=== PATIENT | female | born 1985 | race Hispanic/Latino ===

== ENCOUNTER 2019-02-04 08:19 | Outpatient (CLI) | payer BC | END 2019-02-04 08:20 | disposition home or self-care (01) | LOC: C.PAT 08:19 | DX: N84.0 Polyp of corpus uteri (principal) ==

== ENCOUNTER 2019-02-05 06:09 | Day surgery (SDC) | payer BC ==
[2019-02-04 08:28] VITALS: BMI 25.7
[2019-02-05] MEDS ORDERED: Midazolam 2 MG/2 ML VIAL ONE (07:53)
[2019-02-05] MEDS ORDERED: Propofol 10 mg/ml Inj (20 ML) ONE (07:53)
[2019-02-05] MEDS ORDERED: HYDROmorphone 0.5 mg/0.5 ml ISec IVP PRN (08:43)
[2019-02-05 11:49] LABS: BASO % 1.5 % (0.0-2.0); EOS # 0.1 K/uL (0.0-0.7); EOS % 2.9 % (0.0-4.0); HEMOGLOBIN 11.5 g/dL (11.0-16.0); LYMPH # 1.4 K/uL (1.0-4.3); MEAN CELL VOLUME 87.4 fL (81.0-99.0); MEAN CORPUSCULAR HEMOGLOBIN 28.7 pg (27.0-31.0); MEAN CORPUSCULAR HGB CONC 32.9 g/dL (33.0-37.0); MEAN PLATELET VOLUME 9.2 fL (7.2-11.7); MONO # 0.3 K/uL (0.0-0.8); MONO % 8.6 % (0.0-10.0); NEUT # 1.5 K/uL (1.8-7.0); NRBC % 0.1 % (0.0-2.0); RBC 4.02 Mil/uL (3.80-5.20); WHITE BLOOD COUNT 3.3 K/uL (4.8-10.8)
[2019-02-05 12:24] VITALS: BP 96/53; PULSE 67; RESP 15; TEMP 97.4; O2SAT 98
--- NOTE | 2019-02-07 13:59 | OP ---
PROCEDURE DATE: 02/05/2019 PREOPERATIVE DIAGNOSES: Abnormal uterine bleeding, endometrial polyp. POSTOPERATIVE DIAGNOSES: Abnormal uterine bleeding, endometrial polyp. PROCEDURES PERFORMED: Hysteroscopic polypectomy, dilation and curettage. ANESTHESIA: General LMA. SURGEON: Ngoc Dixon MD VARNISH THINNER: None. ESTIMATED BLOOD LOSS: 5 mL. OPERATIVE FINDINGS: Uterus about 8 weeks in size. Cervical stenosis noted. Bilateral ostia visualized. Polypoid tissue noted along the fundal wall and close to left ostia, carefully resected with MyoSure device completely. Good hemostasis noted. FLUID DEFICIT: 100 mL. SPECIMEN: Endometrial curettings and endometrial polyp. COMPLICATIONS: None. DESCRIPTION OF PROCEDURE: The patient was taken to the operating room, where she was given general anesthesia. Once it was found to be adequate, she was positioned on the operating table in dorsal lithotomy position with legs supported using stirrups. The patient was then prepped and draped in the usual sterile fashion. A time-out was performed confirming correct patient and correct procedure. Bimanual exam was performed with the above-mentioned findings. A Pickering retractor was placed in the anterior and posterior fornix of the vagina. The cervix was adequately visualized. A single-tooth tenaculum was placed in the anterior lip of the cervix. The cervix was carefully dilated and then the uterus was sounded to 7 cm. Following this, the cervix was sequentially dilated to allow for introduction of the hysteroscope under direct visualization using normal saline as the distention media. Bilateral ostia were visualized in addition there was a polypoid mass of approximately 1 cm and close to the left tubal ostia. MyoSure device was then inserted under direct visualization and the mass was carefully resected. The MyoSure device was then removed. Gentle curettage was done. Specimen sent to Pathology. The hysteroscope was then reintroduced. There was good hemostasis noted. All instruments were removed. There was good hemostasis at the tenaculum puncture site. At the end of the procedure, all needle, sponge and instrument counts were noted to be correct x2. The patient tolerated the procedure well and was transferred to the recovery room in stable condition. Ngoc Dixon MD [facility] # [id number]
== END 2019-02-05 12:17 | disposition home or self-care (01) ==
LOC: C.SDS 06:09
PROVIDERS: ATTEND Obstetrics & Gynecology
DX: N84.0 Polyp of corpus uteri (principal); N93.9 Abnormal uterine and vaginal bleeding, unspecified
CPT/HCPCS: 36415; 58558; 85025; 88305; J1170; J2250; J2405; J2704; J3010